=== PATIENT | female | born 1995 | race Two or more races ===

== ENCOUNTER 2023-09-26 14:55 | Emergency (ER) | payer SELFPAY ==
[2023-09-26] MEDS ORDERED: Diazepam 5 MG TAB ONE (16:23)
[2023-09-26] MEDS ORDERED: Lidocaine 1% w/Epinephrine 1:200K 30 ML VIAL ONE (17:08)
== END 2023-09-26 18:28 | disposition home or self-care (01) ==
LOC: CSHERS 14:55
DX: N75.1 Abscess of Bartholin's gland (principal)
CPT/HCPCS: 56420